=== PATIENT | female | born 1960 | race Caucasian/White ===

== ENCOUNTER 2016-06-28 16:09 | Emergency (ER) | payer OTHER ==
[~2016-06-28] VITALS: Ht 157.5 cm; Wt 85.5 kg
[~2016-06-28 16:09] MED LIST: ARIP2TAB8 PO; BENA5TAB2 PO; CEPH-443 PO; FLUC150T17 PO; METF500T4 PO
[2016-06-28 17:18] VITALS: Ht 157.5 cm; Wt 85.5 kg
[2016-06-28] MEDS ORDERED: IBUPROFEN 600 MG TAB PO ONE ×2 (18:30→20:30)
[2016-06-28 19:12] LABS: URINE BLOOD (Dip) POC Negative (NEGATIVE)
--- NOTE | 2016-06-28 20:00 | ERD ---
ER Documentation Chief Complaint Date/Time DATE: 06/28/16 TIME: 19:50 Chief Complaint REFERRED BY PCP FOR EVALUATION OF POSSIBLE LT KIDNEY INFECTION HPI Pleasant 56-year-old female presenting to emergency department today with complaint of left low back pain and burning with urination, nausea and chills. Patient was seen and treated for right pyelonephritis 2 weeks ago. Patient was treated with Cipro 500 mg twice daily for 5 days. Patient reports taking full course of antibiotic. Patient states she was seen yesterday by her primary care physician and sent to emergency department for further evaluation. ROS All systems reviewed and are negative except as per history of present illness. Medications Home Meds Active Scripts Phenazopyridine Hcl* (Pyridium*) 200 Mg Tab, 200 MG PO TID Y for URINARY PAIN, # 6 TAB Prov:LAZARO,RADHA 06/28/16 Amoxicillin/Potassium Clav (Amox-Clav 875-125 mg Tablet) 875-125 mg Tab, 1 TAB PO BID for 10 Days, #20 TAB Prov:LAZARO,RADHA 06/28/16 Cephalexin* (Keflex*) 500 Mg Capsule, 500 MG PO QID for 5 Days, CAP Prov:PATIENCE CAGE MD 10/09/15 Fluconazole* (Diflucan*) 150 Mg Tablet, 150 MG PO ONCE, #1 TAB Prov:PATIENCE CAGE MD 10/09/15 Reported Medications Aripiprazole* (Abilify*) 2 Mg Tablet, 2 MG PO BID, #30 TAB 10/09/15 Benazepril Hcl* (Benazepril Hcl*) 5 Mg Tablet, 5 MG PO DAILY, #30 TAB 10/09/15 Metformin* (Glucophage*) 500 Mg Tab, 500 MG PO WITH BREAKFAST DINNE, #30 TAB 10/09/15 Discontinued Scripts Amoxicillin/Potassium Clav (Amox-Clav 200-28.5 mg/5 ml Katherine) 200 Mg/5 Ml Susp.recon, 5 ML PO BID for 10 Days Prov:LAZARO,RADHA 06/28/16 Allergies Allergies: Coded Allergies: No Known Allergy (Unverified , 06/28/16) PMhx/Soc Medical and Surgical Hx: pt denies Surgical Hx Hx Alcohol Use: No Hx Substance Use: No Hx Tobacco Use: No Smoking Status: Never smoker Physical Exam Vitals Vital Signs Date Time Temp Pulse Resp B/P Pulse Ox O2 Delivery O2 Flow Rate FiO2 06/28/16 20:34 72 17 148/71 100 Room Air 06/28/16 17:18 98.7 103 20 140/87 95 Vitals stable, nursing notes reviewed Physical Exam Const: No acute distress Head: Eyes: ENT: Neck: Resp: Cardio: Abd: Soft, non, symmetric non distended. Pelvic tenderness, normal bowel sounds positive CVA tenderness left-sided Skin: No petechiae or rashes Back: No midline or flank tenderness Ext: No cyanosis, or edema Neur: Awake and alert Psych: Normal Mood and Affect Results 24 hrs Laboratory Tests Test 06/28/16 19:15 Bedside Urine Blood Negative Bedside Urine Glucose (UA) Negative Bedside Urine Ketones (LAB) Negative Bedside Urine Leukocyte Esterase (L Trace Bedside Urine Nitrite (LAB) Negative Bedside Urine Protein (LAB) Negative Bedside Urine pH (LAB) 6.0 Current Medications Medications (Trade) Dose Ordered Sig/Claude Route PRN Reason Start Time Stop Time Status Last Admin Dose Admin Ibuprofen (Motrin) 60 mg ONCE ONCE PO 06/28/16 18:30 06/28/16 18:31 DC Ibuprofen (Motrin) 600 mg ONCE ONCE PO 06/28/16 20:30 06/28/16 20:31 DC 06/28/16 20:30 Interpretation Hai, trace leukocytes, nitrates negative, recent pyelonephritis treatment with Cipro 500 mg 5 days. Current findings are suggestive of infection. Urine will be sent for culture and sensitivity Procedures/MDM Pleasant 56-year-old male patient presenting to emergency department today for follow-up evaluation of pyelonephritis. Patient was treated by her primary care physician with Cipro 500 mg twice daily 10 days. Patient states took full course of antibiotics, but symptoms have recurred. Patient was seen by her primary physician yesterday and instructed to come to emergency room for reevaluation. Current symptoms include dysuria, back pain, nausea and chills. Urinalysis abnormal suggestive of treatment failure on Cipro. I will start patient on Augmentin 875 mg 1 tab p.o. twice daily and Pyridium 200 mg p.o. twice daily 3 days. Patient is afebrile and I feel the patient is stable for discharge at this time. I have discussed results, examination findings, the treatment plan with the patient and family present prior to discharge. Indications for emergent reevaluation, side effects of medication were also discussed. All questions were answered. Patient verbalizes understanding and agrees with plan of care. Departure Diagnosis: Primary Impression: UTI (urinary tract infection) Urinary tract infection type: acute cystitis Hematuria presence: without hematuria Qualified Code: N30.00 - Acute cystitis without hematuria Additional Impression: Hx of pyelonephritis Condition: Good Patient Instructions: Understanding Urinary Tract Infections (UTIs) Additional Instructions: Thank you for for coming to [facility] for your care today. Please ask your nurse or provider if you have questions about your care today and do not leave until all your questions have been answered. Please use any medications given as directed and follow-up with your doctor (or the doctor you were referred to) in the next 2-3 days. If you do not have a primary care doctor you may follow up at the [facility] (listed below). You may also use motrin and tylenol as needed for fever and/or pain unless instructed otherwise by your provider or nurse. Indications for more urgent follow-up have been discussed, but you may return to the Emergency Department at ANY time for any worrisome or worsening symptoms. If you have abdominal pain, please know that no test or exam you received is perfect and you should follow up within 8 hours for continued pain. If you had any imaging studies today, such as an X-Ray or CT Scan, these studies will be reviewed later by a radiologist. You will be called if there are important findings that were not identified today, so make sure the contact information you provided at registration is correct. If you received any narcotic pain control medicine today, such as Vicodin, Morphine or Dilaudid, your coordination and judgment may be affected for a number of hours. Please do not drive or operate heavy machinery, and you may want someone to assist you at home. If you were given a prescription for narcotic medication, be aware that it is very addictive- use sparingly and only if necessary. RADHA WILLIS Jun 28, 2016 20:00
[2016-06-28] MEDS ORDERED: AMOX1TAB10 PO (20:03)
[2016-06-28] MEDS ORDERED: AMOX200S PO (20:03)
[2016-06-28] MEDS ORDERED: PHEN-538 PO (20:05)
[2016-06-28 20:34] VITALS: BP 148/71; PULSE 72; RESP 17
== END 2016-06-28 20:38 | disposition home or self-care (01) ==
LOC: FTE 16:09
DX: N30.00 Acute cystitis without hematuria (principal); N12 Tubulo-interstitial nephritis, not specified as acute or chronic; E11.9 Type 2 diabetes mellitus without complications; Z79.84 Long term (current) use of oral hypoglycemic drugs
CPT/HCPCS: 81003; Z7502; Z7610; 99283

== ENCOUNTER 2016-08-19 18:11 | Emergency (ER) | payer OTHER ==
[~2016-08-19] VITALS: Ht 160 cm; Wt 87.0 kg
[~2016-08-19 18:11] MED LIST changes: +AMOX1TAB10 PO; +AMOX200S PO; +PHEN-538 PO
[2016-08-19 18:29] VITALS: Ht 160 cm; Wt 87.0 kg
[2016-08-19] MEDS ORDERED: ONDANSETRON (ODT) 4 MG TAB ODT STA (19:07)
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
[2016-08-19] MEDS ORDERED: HYDROCODONE/APAP (5/325) TAB PO ONE (19:30)
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
[2016-08-19] MEDS ORDERED: IBUP-1542 PO (20:00)
[2016-08-19] MEDS ORDERED: KETOROLAC 60 MG INJ IM STA (20:00)
[2016-08-19] MEDS ORDERED: HYDR-906 PO (20:00)
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
== END 2016-08-19 20:56 | disposition home or self-care (01) ==
LOC: FTE 18:11
DX: S16.1XXA Strain of muscle, fascia and tendon at neck level, initial encounter (principal); S20.219A Contusion of unspecified front wall of thorax, initial encounter; I10 Essential (primary) hypertension; E11.9 Type 2 diabetes mellitus without complications; R51 Headache; V49.40XA Driver injured in collision with unspecified motor vehicles in traffic accident, initial encounter; Z79.84 Long term (current) use of oral hypoglycemic drugs
CPT/HCPCS: 70450; 71010; 72100; 72125; 93005; 96372; J1885; Z7502; Z7610

== ENCOUNTER 2016-12-31 15:26 | Emergency (ER) | payer OTHER ==
[~2016-12-31] VITALS: Ht 160 cm; Wt 78.0 kg
[~2016-12-31 15:26] MED LIST changes: -AMOX200S PO; +HYDR-906 PO; +IBUP-1542 PO
[2016-12-31 15:34] VITALS: Ht 160 cm; Wt 78.0 kg
[2016-12-31] MEDS ORDERED: KETOROLAC 15 MG INJ IM STA (17:49)
--- NOTE | 2016-12-31 17:49 | ERD ---
ER Documentation Chief Complaint Date/Time DATE: 12/31/16 TIME: 17:46 Chief Complaint left hip/leg pain HPI pt c/o left lumbar pain and left hip, pain exacerbated with walking, sitting, standing, denies injury symptoms x 2 days ROS All systems reviewed and are negative except as per history of present illness. Medications Home Meds Active Scripts Ibuprofen* (Motrin*) 600 Mg Tab, 600 MG PO Q6, #20 TAB Prov:BRIAN MCKENZIE MD 08/19/16 Hydrocodone/Acetaminophen (Dickens 5-325 Tablet) 1 Each Tablet, 1 TAB PO Q6H Y for PAIN, #15 TAB Prov:BRIAN MCKENZIE MD 08/19/16 Phenazopyridine Hcl* (Pyridium*) 200 Mg Tab, 200 MG PO TID Y for URINARY PAIN, # 6 TAB Prov:LAZARO,RADHA 06/28/16 Amoxicillin/Potassium Clav (Amox-Clav 875-125 mg Tablet) 875-125 mg Tab, 1 TAB PO BID for 10 Days, #20 TAB Prov:LAZARO,RADHA 06/28/16 Cephalexin* (Keflex*) 500 Mg Capsule, 500 MG PO QID for 5 Days, CAP Prov:PATIENCE CAGE MD 10/09/15 Fluconazole* (Diflucan*) 150 Mg Tablet, 150 MG PO ONCE, #1 TAB Prov:PATIENCE CAGE MD 10/09/15 Reported Medications Aripiprazole* (Abilify*) 2 Mg Tablet, 2 MG PO BID, #30 TAB 10/09/15 Benazepril Hcl* (Benazepril Hcl*) 5 Mg Tablet, 5 MG PO DAILY, #30 TAB 10/09/15 Metformin* (Glucophage*) 500 Mg Tab, 500 MG PO WITH BREAKFAST DINNE, #30 TAB 10/09/15 Allergies Allergies: Coded Allergies: No Known Allergy (Unverified , 08/19/16) PMhx/Soc Hx Alcohol Use: No Hx Substance Use: No Hx Tobacco Use: No Smoking Status: Never smoker Physical Exam Vitals Vital Signs Date Time Temp Pulse Resp B/P Pulse Ox O2 Delivery O2 Flow Rate FiO2 12/31/16 15:34 98.2 96 10 119/76 99 Physical Exam Const: [] Head: Atraumatic Eyes: Normal Conjunctiva ENT: Normal External Ears, Nose and Mouth. Neck: Full range of motion..~ No meningismus. Resp: Clear to auscultation bilaterally Cardio: Regular rate and rhythm, no murmurs Abd: Soft, non tender, non distended. Normal bowel sounds Skin: No petechiae or rashes Back: No midline or flank tenderness Ext: No cyanosis, or edema Neur: Awake and alert Psych: Normal Mood and Affect Results 24 hrs Laboratory Tests Test 12/31/16 18:18 Bedside Urine pH (LAB) 5.5 Bedside Urine Protein (LAB) Negative Bedside Urine Glucose (UA) Negative Bedside Urine Ketones (LAB) Negative Bedside Urine Blood Negative Bedside Urine Nitrite (LAB) Negative Bedside Urine Leukocyte Esterase (L Trace Current Medications Medications (Trade) Dose Ordered Sig/Claude Route PRN Reason Start Time Stop Time Status Last Admin Dose Admin Ketorolac Tromethamine (Toradol) 15 mg ONCE STAT IM 12/31/16 17:49 12/31/16 17:52 DC 12/31/16 18:10 Diazepam (Valium) 5 mg ONCE ONCE PO 12/31/16 18:00 12/31/16 18:01 DC 12/31/16 18:10 Interpretation text Urinalysis positive for trace leukocytes evidence of hematuria or nitrates. Procedures/MDM PROCEDURE: XR Hip. CLINICAL INDICATION: Left hip pain TECHNIQUE: Two views of the left hip were performed. COMPARISON: None. FINDINGS: There is no fracture. Joint relationships are maintained. Bone mineralization is within normal limits. Soft tissues unremarkable. IMPRESSION: Negative examination. Electronically viewed and signed by .Prabhjot Harris MD, MD on 12/31/2016 18:57 PROCEDURE: XR, lumbosacral spine. CLINICAL INDICATION: Back pain. TECHNIQUE: 3 views of the lumbar spine were obtained. COMPARISON: No prior studies are available for comparison. FINDINGS: There is multilevel mild degenerative osteoarthritis of the facets. There is normal vertebral alignment. No fracture or subluxation is seen. The disc spaces and vertebral heights are well maintained. The sacroiliac joints are normal. The soft tissues appear normal. IMPRESSION: 1. Multilevel mild degenerative osteoarthritis of the facets. Electronically viewed and signed by .Sami Rico MD, on 12/31/2016 18:56 Pleasant 56-year-old female presents to emergency department with left-sided back pain and hip pain and leg pain difficulty ambulating, patient's denies any history of injury, denies history of back pain. Reports symptoms started 2 days ago. Low clinical suspicion for hip fracture or vertebral fracture x-rays will be obtained large this. Physical exam and history support a hip tendinitis , bursitis, or joint deterioration. Findings as read by radiology there is no fracture. Joint relationships are maintained. Bone mineralization is within normal limits. Soft tissue unremarkable. Impression negative examination. Lumbar spine x-ray as read by radiologist there is multi-level degenerative osteoarthritis of the facets there is normal vertebral alignment no fracture or subluxation seen the disc spaces in which he hit vertebral heights are well- maintained. The sacroiliac joints are normal. The soft tissues appeared to be normal. Impression multilevel mild degenerative osteoarthritis of the facets. Patient's pain treated with 15 g of intramuscular Toradol, 5 mg of p.o. Valium. Plan to discharge patient home on Dickens, age and GI bleed. Will also be treated for trace leukocytes with Keflex 500 mg 3 times daily 7 days. Patient instructed to follow-up with primary care physician for treatment of osteoarthritis. Patient is stable with no new complaints during ER course, clinically there is no current evidence to suggest cauda equina syndrome, sepsis , acute abdomen, or any other emergent condition appearing to require further evaluation or hospitalization. I feel the patient is stable for discharge at this time. I have discussed results, examination findings, the treatment plan with the patient and family present prior to discharge. Indications for emergent reevaluation, side effects of medication were also discussed. All questions were answered. Patient verbalizes understanding and agrees with plan of care. Departure Diagnosis: Primary Impression: Osteoarthritis of lumbar spine Spinal osteoarthritis complication: with radiculopathy Qualified Code: M47.26 - Osteoarthritis of spine with radiculopathy, lumbar region Additional Impression: UTI (urinary tract infection) Urinary tract infection type: acute cystitis Hematuria presence: without hematuria Qualified Code: N30.00 - Acute cystitis without hematuria Condition: Good Patient Instructions: Osteoarthritis: Common Sites, Understanding Urinary Tract Infections (UTIs) [facility] Additional Instructions: Thank you for for coming to [facility] for your care today. Please ask your nurse or provider if you have questions about your care today and do not leave until all your questions have been answered. Please use any medications given as directed and follow-up with your doctor (or the doctor you were referred to) in the next 2-3 days. If you do not have a primary care doctor you may follow up at the [facility] (listed below). You may also use motrin and tylenol as needed for fever and/or pain unless instructed otherwise by your provider or nurse. Indications for more urgent follow-up have been discussed, but you may return to the Emergency Department at ANY time for any worrisome or worsening symptoms. If you have abdominal pain, please know that no test or exam you received is perfect and you should follow up within 8 hours for continued pain. If you had any imaging studies today, such as an X-Ray or CT Scan, these studies will be reviewed later by a radiologist. You will be called if there are important findings that were not identified today, so make sure the contact information you provided at registration is correct. If you received any narcotic pain control medicine today, such as Vicodin, Morphine or Dilaudid, your coordination and judgment may be affected for a number of hours. Please do not drive or operate heavy machinery, and you may want someone to assist you at home. If you were given a prescription for narcotic medication, be aware that it is very addictive- use sparingly and only if necessary. RADHA WILLIS Dec 31, 2016 17:49
[2016-12-31] MEDS ORDERED: DIAZEPAM 5 MG TAB PO ONE (18:00)
[2016-12-31 18:11] LABS: URINE BLOOD (Dip) POC Negative (NEGATIVE)
--- NOTE | 2016-12-31 18:56 | RADRPT ---
PROCEDURE: XR, lumbosacral spine. CLINICAL INDICATION: Back pain. TECHNIQUE: 3 views of the lumbar spine were obtained. COMPARISON: No prior studies are available for comparison. FINDINGS: There is multilevel mild degenerative osteoarthritis of the facets. There is normal vertebral align ment. No fracture or subluxation is seen. The disc spaces and vertebral heights are well maintaine d. The sacroiliac joints are normal. The soft tissues appear normal. IMPRESSION: 1. Multilevel mild degenerative osteoarthritis of the facets. RPTAT: GG .Sami Rico MD, MD Date Time Electronically viewed and signed by .Sami Rico MD, on 12/31/2016 18:56 .Y/
--- NOTE | 2016-12-31 18:57 | RADRPT ---
PROCEDURE: XR Hip. CLINICAL INDICATION: Left hip pain TECHNIQUE: Two views of the left hip were performed. COMPARISON: None. FINDINGS: There is no fracture. Joint relationships are maintained. Bone mineralization is within normal block its. Soft tissues unremarkable. IMPRESSION: Negative examination. RPTAT: HMVK .Prabhjot Harris MD, Date Time Electronically viewed and signed by .Prabhjot Harris MD, on 12/31/2016 18:57 .K/
[2016-12-31] MEDS ORDERED: HYDR-906 PO (19:25)
[2016-12-31] MEDS ORDERED: CEPH-443 PO (19:26)
[2016-12-31 20:01] VITALS: BP 128/75; PULSE 77; RESP 18; TEMP 97.8
== END 2016-12-31 20:00 | disposition home or self-care (01) ==
LOC: FTE 15:26
DX: M47.26 Other spondylosis with radiculopathy, lumbar region (principal); N30.00 Acute cystitis without hematuria; Z79.84 Long term (current) use of oral hypoglycemic drugs
CPT/HCPCS: 72100; 73510; 81003; 96372; 99284; J1885

== ENCOUNTER 2017-01-06 15:40 | Emergency (ER) | payer OTHER ==
[~2017-01-06] VITALS: Ht 162.6 cm; Wt 87.0 kg
[2017-01-06 15:54] VITALS: Ht 162.6 cm; Wt 87.0 kg
[2017-01-06] MEDS ORDERED: ONDANSETRON (ODT) 4 MG TAB ODT STA (16:25)
[2017-01-06] MEDS ORDERED: KETOROLAC 30 MG INJ IM STA (16:25)
[2017-01-06] MEDS ORDERED: HYDR-902 PO (16:34)
[2017-01-06] MEDS ORDERED: NAPR-260 PO (16:34)
[2017-01-06] MEDS: morphine 10 MG INJ IM ONE ×2 (16:39→16:55)
--- NOTE | 2017-01-06 17:12 | ERD ---
ER Documentation Chief Complaint Date/Time DATE: 01/06/17 TIME: 17:08 Chief Complaint LEFT BACK PAIN RADIATING DOWN LEG X7 DAYS. HPI 56 year old Female comes in with left-sided lower back pain that radiates on her leg for approximately a week now. She states it started gradually and has increasingly become worse over the last week. Patient's pain was assessed here a few days ago and she was given a prescription for ibuprofen and Bethel. X- rays show arthritis in the back, no fracture or acute injury. She denies saddle anesthesia loss of bowel bladder function..Patient denies trauma. ROS All systems reviewed and are negative except as per history of present illness. Medications Home Meds Active Scripts Naproxen* (Naprosyn*) 500 Mg Tablet, 500 MG PO BID Y for PAIN AND/OR INFLAMMATION, #30 TAB Prov:NANCY DUNLAP PA-C 01/06/17 Hydrocodone/Acetaminophen (Bethel 10-325 Tablet) 1 Each Tablet, 1 TAB PO Q6H Y for PAIN, #20 TAB Prov:NANCY DUNLAP PA-C 01/06/17 Cephalexin* (Keflex*) 500 Mg Capsule, 500 MG PO TID for 7 Days, CAP Prov:LAZARO,RADHA 12/31/16 Hydrocodone/Acetaminophen (Bethel 5-325 Tablet) 1 Each Tablet, 1 TAB PO Q6H Y for PAIN, #20 TAB Prov:LAZARO,RADHA 12/31/16 Ibuprofen* (Motrin*) 600 Mg Tab, 600 MG PO Q6, #20 TAB Prov:BRIAN MCKENZIE MD 08/19/16 Hydrocodone/Acetaminophen (Bethel 5-325 Tablet) 1 Each Tablet, 1 TAB PO Q6H Y for PAIN, #15 TAB Prov:BRIAN MCKENZIE MD 08/19/16 Phenazopyridine Hcl* (Pyridium*) 200 Mg Tab, 200 MG PO TID Y for URINARY PAIN, # 6 TAB Prov:LAZARO,RADHA 06/28/16 Amoxicillin/Potassium Clav (Amox-Clav 875-125 mg Tablet) 875-125 mg Tab, 1 TAB PO BID for 10 Days, #20 TAB Prov:LAZARO,RADHA 06/28/16 Cephalexin* (Keflex*) 500 Mg Capsule, 500 MG PO QID for 5 Days, CAP Prov:ZOHRABIAN,PATIENCE MD 10/09/15 Fluconazole* (Diflucan*) 150 Mg Tablet, 150 MG PO ONCE, #1 TAB Prov:PATIENCE CAGE MD 10/09/15 Reported Medications Aripiprazole* (Abilify*) 2 Mg Tablet, 2 MG PO BID, #30 TAB 10/09/15 Benazepril Hcl* (Benazepril Hcl*) 5 Mg Tablet, 5 MG PO DAILY, #30 TAB 10/09/15 Metformin* (Glucophage*) 500 Mg Tab, 500 MG PO WITH BREAKFAST DINNE, #30 TAB 10/09/15 Allergies Allergies: Coded Allergies: No Known Allergy (Unverified , 08/19/16) PMhx/Soc Medical and Surgical Hx: pt denies Surgical Hx History of Surgery: No Anesthesia Reaction: No Hx Neurological Disorder: No Hx Respiratory Disorders: No Hx Cardiac Disorders: Yes (HTN) Hx Psychiatric Problems: Yes (ANXIETY) Hx Miscellaneous Medical Probl: Yes (DM) Hx Alcohol Use: No Hx Substance Use: No Hx Tobacco Use: No Smoking Status: Never smoker Physical Exam Vitals Vital Signs Date Time Temp Pulse Resp B/P Pulse Ox O2 Delivery O2 Flow Rate FiO2 01/06/17 15:54 98.2 78 18 138/78 98 Physical Exam General: Well-developed, well-nourished. The patient appears in no acute distress. HEENT: Head is normocephalic, atraumatic. No scleral icterus. Neck: Supple. Nontender. Lungs: Clear to auscultation. Normal air movement. Heart: Regular rate and rhythm. S1 and S2 are normal. No murmurs, gallops, or rubs. Abdomen: Soft, nontender, nondistended. Bowel sounds are normoactive. Back: No midline tenderness or crepitus. No rashes. Patient's strength lower extremities 5 out of 5 bilaterally. Extremities: No clubbing or cyanosis. Normal pulses. Moving extremities x 4. No weakness. Neurologic: Alert and oriented 3. No focal deficits. Skin: Normal turgor. No rash or lesions. Results 24 hrs Current Medications Medications (Trade) Dose Ordered Sig/Claude Route PRN Reason Start Time Stop Time Status Last Admin Dose Admin Morphine Sulfate (morphine) 6 mg ONCE ONCE IM 9/11/17 16:30 01/06/17 16:31 DC Ketorolac Tromethamine (Toradol) 30 mg ONCE STAT IM 01/06/17 16:25 01/06/17 16:26 DC 01/06/17 16:39 Ondansetron HCl (Zofran Odt) 4 mg ONCE STAT ODT 01/06/17 16:25 01/06/17 16:26 DC 01/06/17 16:38 Procedures/MDM 56 year old female comes in low back pain on the left that radiates down her left leg,Patient symptoms are most consistent with peripheral neuropathy related to her low back pain. Patient previously had radiographic imaging of lumbar spine, as well as the left hip that were negative for an acute osseous injury. She is neurovascularly intact and we controlled her pain in the emergency department, she received morphine as well as Toradol. She was advised to follow-up with her primary care doctor, to get a referral to see back specialist. She likely will need physical therapy as well. There are no signs of cauda equina, infectious origin or neurovascular injury. Departure Diagnosis: Primary Impression: Back pain Condition: Good Patient Instructions: Back Pain W/ Sciatica Referrals: NIKITA GEIGER MD (PCP) Additional Instructions: ORTOPEDICO Specialista:Usted tiene tae condicin mdica que requiere que andreas a un especialista dentro de los prximos 1-2 meléndez.POR FAVOR,CON MCCONNELL SEGUIMIENTO DE PRIMARIA PHSICIAN refferal. SI USTED NO TIENE UN MDICO GENERAL Y / O USTED NO PUEDE PAGAR so a un mdico,los siguientes montes de oca RECURSOS sido suministrado a usted. ES MCCONNELL RESPONSABILIDAD PARA SER VISTOS POR EL ESPECIALISTA: NANCY DUNLAP PA-C Jan 06, 2017 17:12
[2017-01-06 17:30] VITALS: BP 136/85; PULSE 80; RESP 16; TEMP 98.2
== END 2017-01-06 17:50 | disposition home or self-care (01) ==
LOC: FTE 15:40
DX: M54.5 Low back pain (principal); I10 Essential (primary) hypertension; E11.9 Type 2 diabetes mellitus without complications; Z79.84 Long term (current) use of oral hypoglycemic drugs
CPT/HCPCS: 96372; J1885; J2270; Z7502; Z7610